=== PATIENT | male | born 1950 | race Caucasian/White ===

== ENCOUNTER → 2016-05-07 | Outpatient (CLI) | payer MEDICARE ==
[2016-05-07 07:18] LABS: CH 29.3; CHCM 33.7; HCT 37.6 % (39.0-53.0); HGB 12.7 gm/dL (13.0-17.5); Large Platelets Flag Slight; MCH 29.5 pg (25.0-35.0); MCHC 33.7 g/dL (31.0-37.0); MCV 87.4 fL (80.0-100.0); Mean Platelet Volume 11.2; RDW 13.5 % (11.5-15.5); WBC 8.4 k/uL (3.8-10.6)
[2016-05-07 07:51] LABS: ALT 22 U/L (21-72); AST 15 U/L (17-59); Alkaline Phosphatase 62 U/L (38-126); Anion Gap 12 mmol/L; Blood Urea Nitrogen 17 mg/dL (9-20); Carbon Dioxide 25 mmol/L (22-30); Chloride 106 mmol/L (98-107); Cholesterol 116 mg/dL (<200); Glucose 125 mg/dL (74-99); HDL Cholesterol 36 mg/dL (40-60); Non-African American GFR(MDRD) >60 (>60 ml/min/1.73 sqM); Sodium 143 mmol/L (137-145); Total Bilirubin 0.8 mg/dL (0.2-1.3); Total Protein 7.2 g/dL (6.3-8.2); Triglycerides 138 mg/dL (<150)
== END | disposition home or self-care (01) ==
LOC: LABWHC1 07:02
PROVIDERS: ATTEND Internal Medicine Interventional Cardiology
DX: E78.2 Mixed hyperlipidemia (principal); I25.10 Atherosclerotic heart disease of native coronary artery without angina pectoris
CPT/HCPCS: 36415; 80053; 80061; 85027

== ENCOUNTER → 2016-10-29 | Outpatient (CLI) | payer MEDICARE ==
[2016-10-29 15:40] LABS: ALT 33 U/L (21-72); AST 17 U/L (17-59); Alkaline Phosphatase 64 U/L (38-126); Anion Gap 9 mmol/L; Blood Urea Nitrogen 13 mg/dL (9-20); Calcium 8.6 mg/dL (8.4-10.2); Carbon Dioxide 26 mmol/L (22-30); Chloride 105 mmol/L (98-107); Glucose 103 mg/dL (74-99); Non-African American GFR(MDRD) >60 (>60 ml/min/1.73 sqM); Potassium 3.8 mmol/L (3.5-5.1); Sodium 140 mmol/L (137-145); Total Bilirubin 0.4 mg/dL (0.2-1.3); Total Protein 6.7 g/dL (6.3-8.2)
== END | disposition home or self-care (01) ==
LOC: LABWHC1 15:05
PROVIDERS: ATTEND Internal Medicine Interventional Cardiology
DX: I10 Essential (primary) hypertension (principal)
CPT/HCPCS: 36415; 80053

== ENCOUNTER 2018-05-21 05:49 | Day surgery (SDC) | payer MEDICARE ==
[2018-05-19 09:15] VITALS: BMI 32.0
[2018-05-21] MEDS ORDERED: SODIUM CHLORIDE 0.9% 1,000 ML IV SCH ×2 (05:51→07:45)
[2018-05-21 06:40] VITALS: TEMP 98
[2018-05-21 07:12] LABS: Anion Gap 10 mmol/L; Blood Urea Nitrogen 18 mg/dL (9-20); Calcium 8.9 mg/dL (8.4-10.2); Carbon Dioxide 23 mmol/L (22-30); Chloride 106 mmol/L (98-107); Glucose 131 mg/dL (74-99); Potassium 4.6 mmol/L (3.5-5.1); Sodium 139 mmol/L (137-145)
[2018-05-21] MEDS ORDERED: PROPOFOL 10 MG/ML 20 ML VIAL IV ONE (07:15)
[2018-05-21] MEDS ORDERED: SODIUM CHLORIDE 0.9% 500 ML 500 ML IV ONE (07:21)
[2018-05-21] MEDS ORDERED: NITROGLYCERIN SL TABS 0.4 MG TAB SUBLINGUAL PRN (07:41)
--- NOTE | 2018-05-21 08:45 | ECHOT ---
TRANSESOPHAGEAL ECHOCARDIOGRAM INDICATION: Evaluation of left atrial appendage. PROCEDURE: After explaining the procedure to the patient, its risks and the complications, his blood pressure, heart rate, O2 saturation was monitored. The throat was sprayed with Cetacaine. He received sedation per anesthesia department. The probe was introduced into the esophagus without difficulties. Images were obtained. Following that, the probe was removed. There was no immediate complication. FINDINGS: Left atrial size is dilated. Spontaneous contrast was noted. Left atrial appendage is normal. Left ventricular size and systolic function normal. The aortic valve, mitral valve and tricuspid valve is normal. No pericardial effusion was noted. Contrast bubble study revealed no evidence of shunting across the interatrial septum. Doppler pulse wave and color Doppler obtained and revealed mild mitral regurgitation. There was no shunting by color Doppler study. CONCLUSION: 1. Dilated left atrium with normal appearance left atrial appendage with spontaneous contrast. 2. Normal left ventricular size and systolic function. 3. Mild mitral regurgitation. 4. Normal appearance of the descending thoracic aorta. 5. No evidence of shunting by color Doppler study or contrast bubble study. MMODL / IJN: [id number] /
[2018-05-21] MEDS ORDERED: FLECAINIDE ACETATE 100 MG PO SCH (09:00)
[2018-05-21] MEDS ORDERED: DOXAZOSIN 4 MG TAB PO SCH (09:00)
[2018-05-21] MEDS ORDERED: LOSARTAN 50 MG TAB PO SCH (09:00)
[2018-05-21] MEDS ORDERED: SPIRONOLACTONE 25 MG TAB PO SCH (09:00)
[2018-05-21] MEDS ORDERED: CARVEDILOL 12.5 MG TAB PO SCH (09:00)
[2018-05-21 09:43] VITALS: RESP 20
[2018-05-21 10:15] VITALS: BP 137/72; PULSE 86
--- NOTE | 2018-05-21 10:21 | CE ---
CARDIAC ELECTROPHYSIOLOGY REPORT CARDIOVERSION PROCEDURE NOTE. INDICATION: Atrial fibrillation. PROCEDURE: After explaining the procedure to the patient, its risks and the complications, after obtaining transesophageal echocardiogram and sedated state, a synchronized biphasic cardioversion was performed using 200 joules with christianity of normal sinus rhythm. After the patient appeared to be in atrial tachycardia. There was no immediate complication. JEFFERSON / FRANCISCO JAVIERN: [id number] / [email or web address]
[2018-05-21] MEDS ORDERED: RIVAROXABAN 20 MG TAB PO SCH (18:30)
[2018-05-22] MEDS ORDERED: NON-FORMULARY DRUG (Omeprazole 20 MG) PO SCH (07:30)
== END 2018-05-21 10:00 | disposition home or self-care (01) ==
LOC: CATHCVL 05:49
PROVIDERS: ATTEND Internal Medicine Interventional Cardiology
DX: I48.1 Persistent atrial fibrillation (principal); I34.0 Nonrheumatic mitral (valve) insufficiency; I25.10 Atherosclerotic heart disease of native coronary artery without angina pectoris; E78.5 Hyperlipidemia, unspecified; E78.2 Mixed hyperlipidemia; K21.9 Gastro-esophageal reflux disease without esophagitis; I10 Essential (primary) hypertension; Z95.5 Presence of coronary angioplasty implant and graft; Z82.49 Family history of ischemic heart disease and other diseases of the circulatory system; Z79.899 Other long term (current) drug therapy; Z79.01 Long term (current) use of anticoagulants; Z88.0 Allergy status to penicillin; Z88.8 Allergy status to other drugs, medicaments and biological substances
CPT/HCPCS: 93312; 93320; 93325; 92960; 80048; J2704

== ENCOUNTER → 2018-06-18 | Outpatient (CLI) | payer MEDICARE ==
[2018-06-18 10:14] LABS: HCT 37.2 % (39.0-53.0); HGB 12.1 gm/dL (13.0-17.5); MCH 28.7 pg (25.0-35.0); MCHC 32.5 g/dL (31.0-37.0); MCV 88.1 fL (80.0-100.0); Mean Platelet Volume 10.8; Platelet Count 195 k/uL (150-450); RBC 4.22 m/uL (4.30-5.90); RDW 13.6 % (11.5-15.5); WBC 8.5 k/uL (3.8-10.6)
[2018-06-18 15:48] LABS: Potassium 4.5 mmol/L (3.5-5.5)
== END | disposition home or self-care (01) ==
LOC: LABWHC1 08:40
PROVIDERS: ATTEND Internal Medicine Cardiovascular Disease
DX: Z01.812 Encounter for preprocedural laboratory examination (principal)
CPT/HCPCS: 36415; 80051; 85027

== ENCOUNTER 2019-04-10 21:53 | Emergency (ER) | payer MEDICARE ==
[2019-04-10 21:59] VITALS: TEMP 98
--- NOTE | 2019-04-10 22:14 | ED ---
General Adult HPI - General Chief complaint: Recheck/Abnormal Lab/Rx Stated complaint: High BP Time Seen by Provider: 04/10/19 22:02 Source: patient, family Mode of arrival: ambulatory Limitations: no limitations - History of Present Illness Initial comments: This patient is a 69-year-old man who presents to be evaluated for concerns about his blood pressure. Patient states that he had arrived back at his home today after traveling here from [place]. On arrival he found that his home carbon monoxide sensors were going off. The patient states that they had the fire department come out and check and found that the level was normal. When the fire department had arrived however they also did check and found that his blood pressure was elevated, being above 200/100. The patient notes that when he was in [place] he was having some symptoms and the physician there reduced the dosages of his antihypertensives. At home prior to coming here he did take extra doses of 2 of his antihypertensives, and on arrival his blood pressure has improved. The patient did have some associated headache when it was elevated, but he states it is improving and he declines anything here stating he will take Tylenol. There is no chest pain, dyspnea, palpitations, diaphoresis, nausea or vomiting. No neurologic symptoms. No neck stiffness. -: hour(s) Location: head Severity scale (1-10): 3 Quality: dull Consistency: now resolved Improves with: none Worsens with: none Associated Symptoms: denies other symptoms - Related Data Home Medications Medication Instructions Recorded Confirmed Simvastatin [Zocor] 20 mg PO HS 05/24/14 05/19/18 Carvedilol [Coreg] 12.5 mg PO BID 05/19/18 05/19/18 Doxazosin [Cardura] 4 mg PO BID 05/19/18 05/19/18 Flecainide Acetate 100 mg PO BID 05/19/18 05/19/18 Losartan [Cozaar] 50 mg PO BID 05/19/18 05/19/18 Omeprazole [PriLOSEC] 20 mg PO AC-BRKFST 05/19/18 05/19/18 Rivaroxaban [Xarelto] 20 mg PO PC-SUPPER 05/19/18 05/21/18 Spironolactone 25 mg PO QAM 05/19/18 05/19/18 Previous Rx's Medication Instructions Recorded Nitroglycerin Sl Tabs [Nitrostat] 0.4 mg SUBLINGUAL Q5M PRN #25 tab 05/26/14 Allergies Allergy/AdvReac Type Severity Reaction Status Date / Time nifedipine [From Procardia] Allergy Dyspnea Verified 04/10/19 21:59 Penicillins Allergy Unknown Verified 04/10/19 21:59 Childhood Review of Systems ROS Statement: Those systems with pertinent positive or pertinent negative responses have been documented in the HPI. ROS Other: All systems not noted in ROS Statement are negative. Constitutional: Denies: fever, chills Respiratory: Denies: cough, dyspnea Cardiovascular: Denies: chest pain, palpitations, edema, syncope Gastrointestinal: Denies: abdominal pain, nausea, vomiting Genitourinary: Denies: dysuria, hematuria Musculoskeletal: Denies: back pain Skin: Denies: rash Neurological: Reports: headache. Denies: weakness, numbness, paresthesias, confusion, abnormal gait, vertigo Past Medical History Past Medical History: Atrial Fibrillation, Asthma, Coronary Artery Disease (CAD), Chest Pain / Angina, Heart Failure, GERD/Reflux, Hypertension, Myocardial Infarction ([place]), Pneumonia, Prostate Disorder, Sleep Apnea/CPAP/BIPAP Additional Past Medical History / Comment(s): sinus problems, damamaged lung/left side ribs from fall in 2009-has caused pleurisy, pneumonia yrs ago, spondylitis, anemia, Last Myocardial Infarction Date:: 2010 History of Any Multi-Drug Resistant Organisms: None Reported Past Surgical History: Adenoidectomy, Cholecystectomy, Heart Catheterization With Stent, Joint Replacement, Orthopedic Surgery, Tonsillectomy Additional Past Surgical History / Comment(s): edwige EYE CATARACT REMOVED. RT KNEE REPLACEMENT, left ankle fusion, two cardiac stents, cardioversion Past Anesthesia/Blood Transfusion Reactions: Previous Problems w/ Anesthesia Additional Past Anesthesia/Blood Transfusion Reaction / Comment(s): had trouble waking up Date of Last Stent Placement:: 2009 AND 2011 Past Psychological History: Anxiety Smoking Status: Never smoker Past Alcohol Use History: Rare Past Drug Use History: None Reported - Past Family History Brother(s) Family Medical History: Cancer Father Family Medical History: Cancer Additional Family Medical History / Comment(s): FROM BONE MARROW CANCER Mother Family Medical History: Cancer Additional Family Medical History / Comment(s): KIDNEY/LIVER General Exam Limitations: no limitations General appearance: alert, in no apparent distress Head exam: Present: atraumatic, normocephalic Eye exam: Present: normal appearance. Absent: scleral icterus, conjunctival injection ENT exam: Present: normal oropharynx Neck exam: Present: normal inspection Respiratory exam: Present: normal lung sounds bilaterally. Absent: respiratory distress, wheezes, rales, rhonchi, stridor Cardiovascular Exam: Present: regular rate, normal rhythm, normal heart sounds. Absent: systolic murmur, diastolic murmur, rubs, gallop GI/Abdominal exam: Present: soft Extremities exam: Present: normal inspection, normal capillary refill. Absent: pedal edema, calf tenderness Back exam: Present: normal inspection. Absent: CVA tenderness (R), CVA tenderness (L) Neurological exam: Present: alert, CN II-XII intact. Absent: motor sensory deficit Skin exam: Present: warm, dry, intact, normal color. Absent: rash Course Vital Signs 04/10/19 04/10/19 21:56 21:59 Temperature 98 F Pulse Rate 100 90 Respiratory 20 20 Rate Blood Pressure 162/90 135/81 O2 Sat by Pulse 98 97 Oximetry EKG Findings - EKG Results: EKG: interpreted by JOSE PHILLIPS, sinus rhythm (Rate 90 bpm), normal axis, normal QRS, normal ST/T, no acute changes Medical Decision Making - Lab Data Lab Results 04/10/19 Range/Units 22:14 Carbon Monoxide, Quant 1.9 (<10.0) % Disposition Clinical Impression: HTN (hypertension) Disposition: HOME SELF-CARE Condition: Good Instructions (If sedation given, give patient instructions): Hypertension (ED) Is patient prescribed a controlled substance at d/c from ED?: No Referrals: Sheryl Avelar III, MD [Primary Care Provider] - 1-2 days
[2019-04-10 23:23] VITALS: BP 125/75; PULSE 77; RESP 18
== END 2019-04-10 23:25 | disposition home or self-care (01) ==
LOC: EC 21:53
DX: I11.0 Hypertensive heart disease with heart failure (principal); I50.9 Heart failure, unspecified; I48.91 Unspecified atrial fibrillation; I25.119 Atherosclerotic heart disease of native coronary artery with unspecified angina pectoris; K21.9 Gastro-esophageal reflux disease without esophagitis; I25.2 Old myocardial infarction; N42.9 Disorder of prostate, unspecified; G47.30 Sleep apnea, unspecified; Z88.0 Allergy status to penicillin; Z88.8 Allergy status to other drugs, medicaments and biological substances; Z79.01 Long term (current) use of anticoagulants; Z79.899 Other long term (current) drug therapy; Z95.5 Presence of coronary angioplasty implant and graft; Z96.651 Presence of right artificial knee joint; Z98.1 Arthrodesis status; Z99.89 Dependence on other enabling machines and devices
CPT/HCPCS: 82375; 93005; 99283

== ENCOUNTER 2020-07-10 16:45 | Observation (INO) | payer MEDICARE ==
[2020-07-10] MEDS ORDERED: SODIUM CHLORIDE 0.9% 1,000 ML IV STA ×2 (16:59)
[2020-07-10] MEDS ORDERED: PANTOPRAZOLE 40 MG/10 ML VIAL IVP STA (16:59)
[2020-07-10] MEDS ORDERED: ONDANSETRON 4 MG/2 ML VIAL IVP STA (16:59)
--- NOTE | 2020-07-10 17:03 | ED ---
General Adult HPI - General Chief complaint: Abdominal Pain Stated complaint: Fever,Nausea,Low urine output Time Seen by Provider: 07/10/20 16:50 Source: patient, RN notes reviewed Mode of arrival: EMS Limitations: no limitations - History of Present Illness Initial comments: Patient is a pleasant 70-year-old male presenting to the emergency Department with abdominal discomfort, nausea and vomiting. Onset of symptoms was 2-3 days ago. Patient did have fever today. Patient still has some dry heaves. patient diarrhea. Abdominal discomfort is mostly left lower abdomen. Occasional cough. Patient does have decreased urinary output and does see a urologist for that for his prostate. Patient also has some mild dysuria. - Related Data Home Medications Medication Instructions Recorded Confirmed Simvastatin [Zocor] 20 mg PO HS 05/24/14 05/19/18 Doxazosin [Cardura] 4 mg PO BID 05/19/18 05/19/18 Flecainide Acetate 100 mg PO BID 05/19/18 05/19/18 Losartan [Cozaar] 50 mg PO BID 05/19/18 05/19/18 Omeprazole [PriLOSEC] 20 mg PO AC-BRKFST 05/19/18 05/19/18 Rivaroxaban [Xarelto] 20 mg PO PC-SUPPER 05/19/18 05/21/18 Spironolactone 25 mg PO QAM 05/19/18 05/19/18 carvediloL [Coreg] 12.5 mg PO BID 05/19/18 05/19/18 Previous Rx's Medication Instructions Recorded Nitroglycerin Sl Tabs [Nitrostat] 0.4 mg SUBLINGUAL Q5M PRN #25 tab 05/26/14 Allergies Allergy/AdvReac Type Severity Reaction Status Date / Time nifedipine [From Procardia] Allergy Dyspnea Verified 07/10/20 16:54 Penicillins Allergy Unknown Verified 07/10/20 16:54 Childhood Review of Systems ROS Statement: Those systems with pertinent positive or pertinent negative responses have been documented in the HPI. ROS Other: All systems not noted in ROS Statement are negative. Constitutional: Denies: fever Eyes: Denies: eye pain ENT: Denies: ear pain Respiratory: Reports: cough Cardiovascular: Denies: chest pain Endocrine: Reports: fatigue Gastrointestinal: Reports: abdominal pain, nausea, vomiting Genitourinary: Reports: as per HPI, urgency, dysuria Musculoskeletal: Denies: back pain Skin: Denies: rash Neurological: Denies: weakness Past Medical History Past Medical History: Atrial Fibrillation, Asthma, Coronary Artery Disease (CAD), Chest Pain / Angina, Heart Failure, GERD/Reflux, Hypertension, Myocardial Infarction ([place]), Pneumonia, Prostate Disorder, Sleep Apnea/CPAP/BIPAP Additional Past Medical History / Comment(s): sinus problems, damamaged lung/left side ribs from fall in 2009-has caused pleurisy, pneumonia yrs ago, spondylitis, anemia, Last Myocardial Infarction Date:: 2010 History of Any Multi-Drug Resistant Organisms: None Reported Past Surgical History: Adenoidectomy, Cholecystectomy, Heart Catheterization With Stent, Joint Replacement, Orthopedic Surgery, Tonsillectomy Additional Past Surgical History / Comment(s): edwige EYE CATARACT REMOVED. RT KNEE REPLACEMENT, left ankle fusion, two cardiac stents, cardioversion Past Anesthesia/Blood Transfusion Reactions: Previous Problems w/ Anesthesia Additional Past Anesthesia/Blood Transfusion Reaction / Comment(s): had trouble waking up Date of Last Stent Placement:: 2009 AND 2011 Past Psychological History: Anxiety Smoking Status: Never smoker Past Alcohol Use History: Rare Past Drug Use History: None Reported - Past Family History Brother(s) Family Medical History: Cancer Father Family Medical History: Cancer Additional Family Medical History / Comment(s): FROM BONE MARROW CANCER Mother Family Medical History: Cancer Additional Family Medical History / Comment(s): KIDNEY/LIVER General Exam Limitations: no limitations General appearance: alert, in no apparent distress Head exam: Present: atraumatic Eye exam: Present: normal appearance ENT exam: Present: mucous membranes dry Neck exam: Present: normal inspection Respiratory exam: Present: normal lung sounds bilaterally Cardiovascular Exam: Present: regular rate, normal rhythm Expanded Peripheral pulses: 2+: Dorsalis Pedis (R), Dorsalis Pedis (L) GI/Abdominal exam: Present: soft, tenderness (Moderate tenderness left lower abdomen), normal bowel sounds. Absent: distended, guarding, rebound, rigid, pulsatile mass Extremities exam: Present: normal inspection Neurological exam: Present: alert Psychiatric exam: Present: normal affect, normal mood Skin exam: Present: normal color Course Vital Signs 07/10/20 07/10/20 07/10/20 16:48 16:55 18:51 Temperature 102 F H 99.5 F Pulse Rate 116 H 76 Respiratory 18 16 Rate Blood Pressure 135/79 104/60 O2 Sat by Pulse 96 98 Oximetry EKG Findings - EKG Comments: EKG Findings:: Sinus rhythm with rate of 91. TN 156. QRS 90. QT 364. QTC 447. Normal axis. T-wave inversion 3 and borderline aVF. Normal QRS. Medical Decision Making - Medical Decision Making Patient reevaluated and feeling slightly better. Patient's blood pressure did drop slightly following computed tomography scan however has improved. Patient still feels nauseated. Patient does have some evidence of dehydration. Case discussed with Dr. Valdivia, covering for Dr. Avelar, who will admit. - Lab Data Result diagrams: 07/10/20 17:06 07/10/20 17:06 Lab Results 07/10/20 07/10/20 07/10/20 Range/Units 17:06 17:06 17:06 WBC 12.1 H (3.8-10.6) k/uL RBC 3.69 L (4.30-5.90) m/uL Hgb 11.2 L (13.0-17.5) gm/dL Hct 33.1 L (39.0-53.0) % MCV 89.5 (80.0-100.0) fL MCH 30.3 (25.0-35.0) pg MCHC 33.8 (31.0-37.0) g/dL RDW 14.7 (11.5-15.5) % Plt Count 124 L (150-450) k/uL MPV 12.4 Neutrophils % 92 % Lymphocytes % 2 % Monocytes % 4 % Eosinophils % 1 % Basophils % 0 % Neutrophils # 11.0 H (1.3-7.7) k/uL Lymphocytes # 0.2 L (1.0-4.8) k/uL Monocytes # 0.5 (0-1.0) k/uL Eosinophils # 0.2 (0-0.7) k/uL Basophils # 0.0 (0-0.2) k/uL PT 12.5 H (9.0-12.0) sec INR 1.2 H (<1.2) APTT 25.3 (22.0-30.0) sec Sodium 140 (137-145) mmol/L Potassium 4.0 (3.5-5.1) mmol/L Chloride 108 H (98-107) mmol/L Carbon Dioxide 24 (22-30) mmol/L Anion Gap 8 mmol/L BUN 28 H (9-20) mg/dL Creatinine 1.43 H (0.66-1.25) mg/dL Est GFR (CKD-EPI)AfAm 57 (>60 ml/min/1.73 sqM) Est GFR (CKD-EPI)NonAf 49 (>60 ml/min/1.73 sqM) Glucose 135 H (74-99) mg/dL Calcium 8.7 (8.4-10.2) mg/dL Total Bilirubin 1.1 (0.2-1.3) mg/dL AST 38 (17-59) U/L ALT 44 (4-49) U/L Alkaline Phosphatase 84 (38-126) U/L Total Protein 6.2 L (6.3-8.2) g/dL Albumin 3.5 (3.5-5.0) g/dL Amylase 49 (30-110) U/L Lipase 68 (23-300) U/L Urine Color Urine Appearance (Clear) Urine pH (5.0-8.0) Ur Specific Caroleen (1.001-1.035) Urine Protein (Negative) Urine Glucose (UA) (Negative) Urine Ketones (Negative) Urine Blood (Negative) Urine Nitrite (Negative) Urine Bilirubin (Negative) Urine Urobilinogen (<2.0) mg/dL Ur Leukocyte Esterase (Negative) Coronavirus (PCR) (Not Detectd) 07/10/20 07/10/20 Range/Units 17:33 18:20 WBC (3.8-10.6) k/uL RBC (4.30-5.90) m/uL Hgb (13.0-17.5) gm/dL Hct (39.0-53.0) % MCV (80.0-100.0) fL MCH (25.0-35.0) pg MCHC (31.0-37.0) g/dL RDW (11.5-15.5) % Plt Count (150-450) k/uL MPV Neutrophils % % Lymphocytes % % Monocytes % % Eosinophils % % Basophils % % Neutrophils # (1.3-7.7) k/uL Lymphocytes # (1.0-4.8) k/uL Monocytes # (0-1.0) k/uL Eosinophils # (0-0.7) k/uL Basophils # (0-0.2) k/uL PT (9.0-12.0) sec INR (<1.2) APTT (22.0-30.0) sec Sodium (137-145) mmol/L Potassium (3.5-5.1) mmol/L Chloride (98-107) mmol/L Carbon Dioxide (22-30) mmol/L Anion Gap mmol/L BUN (9-20) mg/dL Creatinine (0.66-1.25) mg/dL Est GFR (CKD-EPI)AfAm (>60 ml/min/1.73 sqM) Est GFR (CKD-EPI)NonAf (>60 ml/min/1.73 sqM) Glucose (74-99) mg/dL Calcium (8.4-10.2) mg/dL Total Bilirubin (0.2-1.3) mg/dL AST (17-59) U/L ALT (4-49) U/L Alkaline Phosphatase (38-126) U/L Total Protein (6.3-8.2) g/dL Albumin (3.5-5.0) g/dL Amylase (30-110) U/L Lipase (23-300) U/L Urine Color Yellow Urine Appearance Clear (Clear) Urine pH 5.0 (5.0-8.0) Ur Specific Caroleen 1.011 (1.001-1.035) Urine Protein Negative (Negative) Urine Glucose (UA) Negative (Negative) Urine Ketones Negative (Negative) Urine Blood Negative (Negative) Urine Nitrite Negative (Negative) Urine Bilirubin Negative (Negative) Urine Urobilinogen <2.0 (<2.0) mg/dL Ur Leukocyte Esterase Negative (Negative) Coronavirus (PCR) Not Detected (Not Detectd) - Radiology Data Radiology results: report reviewed (Computed tomography scan of the abdomen pelvis reveals no acute process.), image reviewed (Chest x-ray shows pleural reaction left lung base similar to old. No heart failure.) Disposition Clinical Impression: Vomiting, Dehydration Disposition: ADMITTED IP TO THIS HOSP Is patient prescribed a controlled substance at d/c from ED?: No Referrals: Sheryl Avelar III, MD [Primary Care Provider] - 1-2 days Decision Time: 19:49
[2020-07-10 17:17] LABS: Basophils % (A) 0 %; Eosinophils # (A) 0.2 k/uL (0-0.7); Eosinophils % (A) 1 %; HCT 33.1 % (39.0-53.0); HGB 11.2 gm/dL (13.0-17.5); Lymphocytes # (A) 0.2 k/uL (1.0-4.8); Lymphocytes % (A) 2 %; MCH 30.3 pg (25.0-35.0); MCHC 33.8 g/dL (31.0-37.0); MCV 89.5 fL (80.0-100.0); Mean Platelet Volume 12.4; Monocytes # (A) 0.5 k/uL (0-1.0); Monocytes % (A) 4 %; Neutrophils % (A) 92 %; Platelet Count 124 k/uL (150-450); RBC 3.69 m/uL (4.30-5.90); RDW 14.7 % (11.5-15.5); WBC 12.1 k/uL (3.8-10.6)
[2020-07-10] MEDS ORDERED: ACETAMINOPHEN IV (For NPO) 1,000 MG in EMPTY BAG 1 BAG IVPB ONE (17:30)
[2020-07-10 17:33] LABS: Albumin 3.5 g/dL (3.5-5.0); Calcium 8.7 mg/dL (8.4-10.2); Total Bilirubin 1.1 mg/dL (0.2-1.3); Total Protein 6.2 g/dL (6.3-8.2)
[2020-07-10 17:34] LABS: INR 1.2 (<1.2); Partial Thromboplastin Time 25.3 sec (22.0-30.0); Prothrombin Time 12.5 sec (9.0-12.0)
--- NOTE | 2020-07-10 18:25 | CT ---
EXAMINATION TYPE: CT abdomen pelvis w con DATE OF EXAM: 07/10/2020 COMPARISON: 01/10/2011 HISTORY: Abdominal pain and low urine output. CT DLP: 1783.8 mGycm Automated exposure control for dose reduction was used. CONTRAST: Performed with IV Contrast, patient injected with 80ml mL of Isovue 300. Images obtained from the diaphragm to the floor the pelvis with IV contrast. There is some mild infiltrate and atelectasis left lung base. There is some coronary artery calcifica tion. Liver spleen stomach pancreas appear intact. Bile ducts are not dilated. There are clips from c holecystectomy. There is 2 cm low-density left adrenal mass consistent with benign disease. This has fat density. Kidneys show satisfactory contrast opacification. There is no hydronephrosis. There are multiple ezio l cortical cysts that measure up to 5 cm. There is no retroperitoneal adenopathy. Ureters are not dil ated. Bladder distends smoothly. There is no inguinal hernia. There is no free fluid in the pelvis. A ppendix appears normal. There is no mesenteric edema. There is no ascites or free air. There is no si gn of a bowel obstruction. Lumbar spine is intact. There is no compression fracture. The bony pelvis is intact. IMPRESSION: Negative CT scan abdomen and pelvis. Normal appendix. Minimal infiltrate and pleural reaction left la teral lung base. This appears slightly increased compared to old exam. Normal appendix. Renal cortica l cysts are increased compared to old exam.
[2020-07-10 18:33] LABS: Appearance,Urine Clear (Clear); Bilirubin,Urine Negative (Negative); Blood,Urine Negative (Negative); Color,Urine Yellow; Glucose,Urine (UA) Negative (Negative); Ketones,Urine Negative (Negative); Leukocyte Esterase,Urine Negative (Negative); Nitrite,Urine Negative (Negative); Protein,Urine Negative (Negative); Specific Gravity,Urine 1.011 (1.001-1.035); Urobilinogen,Urine <2.0 mg/dL (<2.0)
--- NOTE | 2020-07-10 19:41 | XR ---
EXAMINATION TYPE: XR chest 2V DATE OF EXAM: 07/10/2020 COMPARISON: 05/11/2016 HISTORY: Fever TECHNIQUE: 2 views FINDINGS: There is some atelectasis left lung base. Heart size is normal. There is no heart failure. There are chest leads. Bony thorax is intact. IMPRESSION: Mild pleural reaction and atelectasis at the left lung base similar to old exam. No heart failure.
[2020-07-10] MEDS ORDERED: ACETAMINOPHEN TAB 325 MG TAB PO PRN (19:49)
[2020-07-10] MEDS ORDERED: NALOXONE 0.4 MG/ML 1 ML VIAL IV PRN (19:49)
[2020-07-10] MEDS ORDERED: ONDANSETRON 4 MG/2 ML VIAL IVP PRN (19:49)
[2020-07-10] MEDS: SODIUM CHLORIDE 0.9% 1,000 ML IV SCH (22:10)
[2020-07-10] MEDS ORDERED: NITROGLYCERIN SL TABS 0.4 MG TAB SUBLINGUAL PRN (23:08)
[2020-07-11 03:07] VITALS: RESP 16
[2020-07-11] MEDS ORDERED: MELATONIN 5 MG TABLET PO PRN (03:26)
[2020-07-11] MEDS: SODIUM CHLORIDE 0.9% 1,000 ML IV SCH (05:07)
[2020-07-11 07:21] VITALS: BP 111/67; PULSE 53; TEMP 98
[2020-07-11] MEDS ORDERED: carvediloL 3.125 MG TAB PO SCH (07:30)
[2020-07-11] MEDS ORDERED: PANTOPRAZOLE 40 MG/10 ML VIAL IV SCH (09:00)
[2020-07-11] MEDS ORDERED: LOSARTAN 50 MG TAB PO SCH (09:00)
[2020-07-11] MEDS ORDERED: RIVAROXABAN 20 MG TAB PO SCH ×2 (09:00→17:00)
[2020-07-11] MEDS ORDERED: PANTOPRAZOLE 40 MG TABLET PO SCH (09:00)
[2020-07-11] MEDS ORDERED: hydroCHLOROthiazide 25 MG TAB PO SCH (09:00)
[2020-07-11] MEDS ORDERED: DOXAZOSIN 4 MG TAB PO SCH (09:00)
[2020-07-11] MEDS ORDERED: FOLIC ACID 1 MG TAB PO SCH (09:00)
[2020-07-11 10:20] LABS: Basophils # (A) 0.01 X 10*3/uL (0.00-0.10); Basophils % (A) 0.1 %; Eosinophils # (A) 0.55 X 10*3/uL (0.04-0.35); Eosinophils % (A) 7.4 %; HCT 30.2 % (39.6-50.0); HGB 9.8 g/dL (13.0-17.0); Lymphocytes # (A) 0.91 X 10*3/uL (0.90-5.00); Lymphocytes % (A) 12.3 %; MCH 30.2 pg (27.0-32.0); MCHC 32.5 g/dL (32.0-37.0); MCV 92.9 fL (80.0-97.0); Mean Platelet Volume 14.5 fL (9.5-12.2); Monocytes # (A) 0.64 X 10*3/uL (0.20-1.00); Monocytes % (A) 8.6 %; Neutrophils # (A) 5.27 X 10*3/uL (1.80-7.70); Neutrophils % (A) 71.1 %; Platelet Count 126 X 10*3/uL (140-440); RBC 3.25 X 10*6/uL (4.40-5.60); RDW 14.1 % (11.5-14.5); WBC 7.42 X 10*3/uL (4.50-10.00)
[2020-07-11 10:22] LABS: African American GFR (CKD) 63.2 (60.0-200.0); Anion Gap 6.8 mmol/L (4.00-12.00); BUN/Creat Ratio 18.46 Ratio (12.00-20.00); Calcium 7.7 mg/dL (8.7-10.3); Carbon Dioxide 25.2 mmol/L (21.6-31.8); Non-African American GFR(CKD) 54.5 (60.0-200.0); Potassium 3.7 mmol/L (3.5-5.5)
--- NOTE | 2020-07-11 19:06 | HP ---
HISTORY AND PHYSICAL DATE OF SERVICE: 07/11/2020. COMBINED HISTORY AND PHYSICAL AND DISCHARGE SUMMARY: CHIEF COMPLAINT: Nausea, fever, chills, and some vomiting. HISTORY OF PRESENT ILLNESS: This 70-year-old gentleman with a past medical history of atrial fibrillation, asthma, CAD, CHF, GERD, hypertension, history of myocardial infarction, history of pneumonia, being followed by Dr. Avelar in the outpatient setting was admitted to [facility] yesterday with complaints of abdominal discomfort, some nausea, vomiting, and shaking, chills. The patient had similar symptoms over 2-3 days ago from which the patient recovered completely according to him. When the patient came yesterday, the patient had features of dehydration. The creatinine is elevated 1.43, indicating acute renal failure. Patient was given IV fluids. White count is 12.1, improved to 7.42, but the COVID-19 was negative and the patient has taken the complete course of vaccinations as well. Today the patient is feeling much better and the patient is extremely keen on going home at this time. There is no history of any chest pain, palpitations, hematochezia, melena, headache, loss of consciousness, seizures at this time. PAST MEDICAL HISTORY: Atrial fibrillation asthma, CAD, CHF, GERD, hypertension. MEDICATIONS: Medications prior to admission include home medications are nitro, Lipitor, Xarelto, Protonix, hydrochlorothiazide, Coreg, Cozaar, folic acid, Cardura, doses reviewed. ALLERGIES: PENICILLIN. FAMILY HISTORY: History of bone marrow cancer. SOCIAL HISTORY: No history of smoking. No history of alcohol intake. REVIEW OF SYSTEMS: ENT: No diminished vision. No diminished hearing. CARDIOVASCULAR SYSTEM: No angina or palpitations. RESPIRATORY: As mentioned earlier. GI: As mentioned earlier. no dysuria. NERVOUS SYSTEM: No numbness, weakness. ALLERGY/IMMUNOLOGY: As mentioned earlier. HEMATOLOGY/ONCOLOGY: No history of anemia. ENDOCRINE: No history of diabetes or hypothyroid. CONSTITUTIONAL: As mentioned earlier. DERMATOLOGY: Negative. RHEUMATOLOGY: Negative. PSYCHIATRIC: As mentioned earlier. PHYSICAL EXAMINATION: Alert and oriented times three. Pulse 53, blood pressure 111/67, respirations 16, temperature 98 degrees, pulse ox 98% on room air. HEENT: Conjunctivae normal. NECK: No JVD. CARDIOVASCULAR: S1, S2 muffled. RESPIRATION: Breath sounds diminished in the bases. No rhonchi. No crackles. ABDOMEN: Soft, nontender. No mass palpable. LEGS: No edema. No swelling. NERVOUS SYSTEM: Higher functions as mentioned earlier. Moves all four limbs. No focal motor or sensory deficits. LYMPHATICS: No lymph nodes palpable in the neck, axillae or groin. SKIN: No ulcer, no rash and no bleeding. JOINTS: No active deforming arthropathy. LAB STUDIES: WBC 7.3, hemoglobin 9.8, and platelets are 126. Other labs are noted. ASSESSMENT: 1. Nausea, vomiting, abdominal discomfort, possible viral syndrome. 2. Possible acute gastritis. 3. Increased WBC, possibly reactive, improved. 4. Anemia, normocytic. 5. Thrombocytopenia, stable. 6. Increased creatinine with acute renal failure with acute tubular necrosis with prerenal renal failure, improved. 7. History atrial fibrillation. 8. History of asthma. 9. History of coronary artery disease. 10.History of congestive heart failure. 11.Gastroesophageal reflux disease. 12.Hypertension. 13.History of myocardial infarction. 14.History of pneumonia. 15.Sleep apnea. 16.History of coronary artery disease, stent. 17.History of anxiety. 18.FULL CODE. RECOMMENDATIONS AND DISCUSSION: This 70-year-old gentleman who presented with multiple complex medical issues, we will monitor the patient closely, continue current medications. The patient improved significantly after IV fluids and the basic labs have almost normalized and hemoglobin 9.8. The platelets are 126, which could be the result of the viral syndrome. Needs outpatient followup. At this time, the patient is extremely keen on going home. I would recommend the patient to be discharged on the same medications and follow up with Dr. Avelar for continued followup and as well as followup labs and also to address the above mentioned multiple complex medical issues. Once again, the patient is stable at this time but overall prognosis remains guarded because of above-mentioned multiple medical issues. A copy of dictation being forwarded to Dr. Avelar, who is the primary physician. MMODL / IJN: [id number] /
[2020-07-11] MEDS ORDERED: ATORVASTATIN 40 MG TAB PO SCH (21:00)
== END 2020-07-11 11:45 | disposition home or self-care (01) ==
LOC: EC 16:45 → 6NMEDSUR 19:49
PROVIDERS: ADMIT Internal Medicine; ATTEND Internal Medicine
DX: R10.9 Unspecified abdominal pain (principal); R11.2 Nausea with vomiting, unspecified; D72.829 Elevated white blood cell count, unspecified; D64.9 Anemia, unspecified; D69.6 Thrombocytopenia, unspecified; N17.0 Acute kidney failure with tubular necrosis; I48.91 Unspecified atrial fibrillation; J45.909 Unspecified asthma, uncomplicated; I25.10 Atherosclerotic heart disease of native coronary artery without angina pectoris; I11.0 Hypertensive heart disease with heart failure; I50.9 Heart failure, unspecified; K21.9 Gastro-esophageal reflux disease without esophagitis; I25.2 Old myocardial infarction; Z87.01 Personal history of pneumonia (recurrent); G47.30 Sleep apnea, unspecified; Z95.5 Presence of coronary angioplasty implant and graft; F41.9 Anxiety disorder, unspecified; R50.9 Fever, unspecified; R19.7 Diarrhea, unspecified; R30.0 Dysuria; E86.0 Dehydration; N42.9 Disorder of prostate, unspecified; Z20.822 Contact with and (suspected) exposure to COVID-19; Z79.899 Other long term (current) drug therapy; Z88.0 Allergy status to penicillin; Z90.49 Acquired absence of other specified parts of digestive tract; Z79.01 Long term (current) use of anticoagulants; Z88.8 Allergy status to other drugs, medicaments and biological substances; Z96.651 Presence of right artificial knee joint; Z98.1 Arthrodesis status; Z91.81 History of falling; Z84.1 Family history of disorders of kidney and ureter; Z83.79 Family history of other diseases of the digestive system; Z80.8 Family history of malignant neoplasm of other organs or systems
CPT/HCPCS: 96365; 96375; 99285; 36415; 93005; 80053; 80048; 82150; 83690 ×2; 85025 ×2; 85610; 85730; 81003; 87635; 71046; 74177; G0378 ×2; J2405; J0131; C9113; Q9967

== ENCOUNTER → 2020-08-15 | Outpatient (CLI) | payer MEDICARE | END | disposition home or self-care (01) | LOC: LABWHC1 11:35 | PROVIDERS: ATTEND Urology | DX: R97.20 Elevated prostate specific antigen [PSA] (principal) | CPT/HCPCS: 36415; 84153 ==

== ENCOUNTER 2023-10-11 10:25 | Observation (INO) | payer MEDICARE ==
--- NOTE | 2023-10-11 10:42 | ED ---
Arrhythmia/Palpitations HPI - General Chief Complaint: Arrhythmia/Palpitations Stated Complaint: Heart palpatations Time Seen by Provider: 10/11/23 10:40 Source: patient, RN notes reviewed, old records reviewed Mode of arrival: wheelchair Limitations: no limitations - History of Present Illness Initial Comments: This is a 73-year-old male presenting today for evaluation of chest pain palpitations elevated blood pressures dizziness some blurry vision at times, patient is having numbness and tingling as well. Patient has history of atrial fibrillation history of stents and was supposed to have cardiology evaluation in office and hence presents to the ER due to symptoms MD Complaint: palpitations, atrial fibrillation -: unknown Associated Symptoms: chest pain, anxiety, feeling of impending doom Treatments Prior to Arrival: other (0) - Related Data Home Medications Medication Instructions Recorded Confirmed Doxazosin [Cardura] 4 mg PO BID 05/19/18 10/11/23 Losartan [Cozaar] 50 mg PO BID 05/19/18 10/11/23 Rivaroxaban [Xarelto] 20 mg PO HS 05/19/18 10/11/23 Atorvastatin [Lipitor] 40 mg PO HS 07/10/20 10/11/23 Pantoprazole Sodium [Protonix] 40 mg PO DAILY PRN 07/10/20 10/11/23 carvediloL [Coreg] 3.125 mg PO BID 07/10/20 10/11/23 Cyanocobalamin [Vitamin B-12 1,000 mcg SQ QMONTHLY 10/11/23 10/11/23 Injection] Previous Rx's Medication Instructions Recorded Nitroglycerin Sl Tabs [Nitrostat] 0.4 mg SUBLINGUAL Q5M PRN #25 tab 05/26/14 cloNIDine HCL [Catapres] 0.1 mg PO BID PRN 30 Days #60 tab 10/12/23 Allergies Allergy/AdvReac Type Severity Reaction Status Date / Time nifedipine [From Procardia] Allergy Dyspnea Verified 10/11/23 11:46 Penicillins Allergy Unknown Verified 10/11/23 11:46 Childhood Review of Systems ROS Statement: Those systems with pertinent positive or pertinent negative responses have been documented in the HPI. ROS Other: All systems not noted in ROS Statement are negative. Past Medical History Past Medical History: Atrial Fibrillation, Asthma, Coronary Artery Disease (C AD), Chest Pain / Angina, Heart Failure, GERD/Reflux, Hypertension, Myocardial Infarction (PR), Pneumonia, Prostate Disorder, Sleep Apnea/CPAP/BIPAP Additional Past Medical History / Comment(s): sinus problems, damamaged lung/left side ribs from fall in 2009-has caused pleurisy, pneumonia yrs ago, spondylitis, anemia, Last Myocardial Infarction Date:: 2010 History of Any Multi-Drug Resistant Organisms: None Reported Past Surgical History: Adenoidectomy, Cholecystectomy, Heart Catheterization Wit h Stent, Joint Replacement, Orthopedic Surgery, Tonsillectomy Additional Past Surgical History / Comment(s): edwige EYE CATARACT REMOVED. RT KNEE REPLACEMENT, left ankle fusion, two cardiac stents, cardioversion Past Anesthesia/Blood Transfusion Reactions: Previous Problems w/ Anesthesia Additional Past Anesthesia/Blood Transfusion Reaction / Comment(s): had trouble waking up Date of Last Stent Placement:: 2009 AND 2011 Past Psychological History: Anxiety Smoking Status: Never smoker Past Alcohol Use History: Rare Past Drug Use History: None Reported - Past Family History Brother(s) Family Medical History: Cancer Father Family Medical History: Cancer Additional Family Medical History / Comment(s): FROM BONE MARROW CANCER Mother Family Medical History: Cancer Additional Family Medical History / Comment(s): KIDNEY/LIVER General Exam Limitations: no limitations General appearance: alert, in no apparent distress Head exam: Present: atraumatic, normocephalic, normal inspection Eye exam: Present: normal appearance, PERRL, EOMI. Absent: scleral icterus, conjunctival injection, periorbital swelling ENT exam: Present: normal exam, mucous membranes moist Neck exam: Present: normal inspection. Absent: tenderness, meningismus, lymphadenopathy Respiratory exam: Present: normal lung sounds bilaterally. Absent: respiratory distress, wheezes, rales, rhonchi, stridor Cardiovascular Exam: Present: regular rate, normal rhythm, normal heart sounds. Absent: systolic murmur, diastolic murmur, rubs, gallop, clicks GI/Abdominal exam: Present: soft, normal bowel sounds. Absent: distended, tenderness, guarding, rebound, rigid Extremities exam: Present: normal inspection, full ROM, normal capillary refill. Absent: tenderness, pedal edema, joint swelling, calf tenderness Back exam: Present: normal inspection Neurological exam: Present: alert, oriented X3, CN II-XII intact Psychiatric exam: Present: normal affect, normal mood Skin exam: Present: warm, dry, intact, normal color. Absent: rash Course Vital Signs 10/11/23 10/11/23 10/11/23 10:29 10:45 10:51 Temperature 98.0 F Pulse Rate 91 Pulse Rate [ 85 Food Bagging Machine Operator ] Respiratory 18 Rate Blood Pressure 191/121 O2 Sat by Pulse 100 96 Oximetry 10/11/23 10/11/23 10/11/23 10:55 11:02 11:32 Temperature Pulse Rate 82 76 74 Pulse Rate [ Food Bagging Machine Operator ] Respiratory 18 18 18 Rate Blood Pressure 178/113 157/102 163/98 O2 Sat by Pulse 98 98 97 Oximetry 10/11/23 10/11/23 10/11/23 12:00 12:30 13:00 Temperature Pulse Rate 80 73 80 Pulse Rate [ Food Bagging Machine Operator ] Respiratory 17 18 16 Rate Blood Pressure 169/109 165/97 163/104 O2 Sat by Pulse 97 97 97 Oximetry 10/11/23 10/11/23 10/11/23 13:08 13:30 14:30 Temperature 97.6 F Pulse Rate 72 84 70 Pulse Rate [ Food Bagging Machine Operator ] Respiratory 18 16 16 Rate Blood Pressure 163/104 167/118 163/98 O2 Sat by Pulse 96 97 97 Oximetry 10/11/23 10/11/23 10/11/23 15:00 15:39 16:47 Temperature Pulse Rate 78 93 84 Pulse Rate [ Food Bagging Machine Operator ] Respiratory 18 18 18 Rate Blood Pressure 158/86 166/110 162/93 O2 Sat by Pulse 96 98 95 Oximetry 10/11/23 10/11/23 10/11/23 17:15 18:19 22:21 Temperature 98.7 F Pulse Rate 67 70 Pulse Rate [ Food Bagging Machine Operator ] Respiratory 18 17 Rate Blood Pressure 158/89 151/99 158/94 O2 Sat by Pulse 96 96 Oximetry - Reevaluation(s) Reevaluation #1: 10/11/23 12:50 Records reviewed Reevaluation #2: 10/11/23 12:50 Patient symptoms are unchanged Reevaluation #3: 10/11/23 12:50 Patient informed of results and questions answered Reevaluation #4: Was pt. sent in by a medical professional or institution (, PA, QI SPECIALIST, urgent care, hospital, or [place] [facility] facility...) When possible be specific @ -no Did you speak to anyone other than the patient for history (EMS, parent, family, police, friend...)? What history was obtained from this source @ -no Did you review nursing and triage notes (agree or disagree)? Why? @ -agree Are old charts reviewed (outside hosp., previous admission, EMS record, old EKG, old radiological studies, urgent care reports/EKG's, [place] [facility] facility records)? Report findings @ -yes Differential Diagnosis (chest pain, altered mental status, abdominal pain women, abdominal pain men, vaginal bleeding, weakness, fever, dyspnea, syncope, headache, dizziness, GI bleed, back pain, seizure, CVA, palpatations, mental health, musculoskeletal)? @ -prior EKG interpreted by me (3pts min.). @ -yes X-rays interpreted by me (1pt min.). @ -no CT interpreted by me (1pt min.). @ -no U/S interpreted by me (1pt. min.). @ -no What testing was considered but not performed or refused? (CT, X-rays, U/S, labs)? Why? @ -none What meds were considered but not given or refused? Why? @ -none Did you discuss the management of the patient with other professionals (professionals i.e. , PA, QI SPECIALIST, lab, RT, psych nurse, foster care social worker, molecular geneticist, teacher, classifications officer cc/cm, machine adjuster leader case trim)? Give summary @ -no Was smoking cessation discussed for >3mins.? @ -no Was critical care preformed (if so, how long)? @ -yes31 Were there social determinants of health that impacted care today? How? (Homelessness, low income, unemployed, alcoholism, drug addiction, transportation, low edu. Level, literacy, decrease access to med. care, senior living, rehab)? @ -none Was there de-escalation of care discussed even if they declined (Discuss DNR or withdrawal of care, Hospice)? DNR status @ -no What co-morbidities impacted this encounter? (DM, HTN, Smoking, COPD, CAD, Cancer, CVA, ARF, Chemo, Hep., AIDS, mental health diagnosis, sleep apnea, morbid obesity)? @ -none Was patient admitted / discharged? Hospital course, mention meds given and route, prescriptions, significant lab abnormalities, going to OR and other pertinent info. @ - 73 male to the ER for evaluation patient presents today for evaluation in regards to hypertension elevated blood pressure uncontrolled blood pressure at home with palpitations, history of atrial fibrillation patient is on Eliquis will admit for cardiology evaluation feels like prior episodes were patient has noted to have a stent placed which she has a prior history of that happening twice Admitted Undiagnosed new problem with uncertain prognosis? @ -no Drug Therapy requiring intensive monitoring for toxicity (Heparin, Nitro, Insulin, Cardizem)? @ -no Were any procedures done? @ -no Diagnosis/symptom? @ -Chest pain ACS Acute, or Chronic, or Acute on Chronic? @ -Acute Uncomplicated (without systemic symptoms) or Complicated (systemic symptoms)? @ -Complicated Side effects of treatment? @ -no Exacerbation, Progression, or Severe Exacerbation? @ -exacerbation Poses a threat to life or bodily function? How? (Chest pain, USA, PR, pneumonia, PE, COPD, DKA, ARF, appy, cholecystitis, CVA, Diverticulitis, Homicidal, Suicidal, threat to staff... and all critical care pts) @ -yes with chest pain Reevaluation #5: Differential Chest Pain: Stable Angina, Unstable Angina, STEMI, NSTEMI Aortic Dissection, Pneumothorax, Musculoskeletal, Esophageal Spasm GERD, Cholecystitis, Pancreatitis, Zoster, this is not meant to be an all-inclusive list. - Consultations Consultation #1: Spoke with sound who agrees to admit this patient EKG Findings - EKG Comments: EKG Findings:: EKG is A-fib 89 QRS 96 QTc 417 - EKG Results: EKG: interpreted by ERMD Medical Decision Making - Medical Decision Making 73 male to the ER for evaluation patient presents today for evaluation in regards to hypertension elevated blood pressure uncontrolled blood pressure at home with palpitations, history of atrial fibrillation patient is on Eliquis will admit for cardiology evaluation feels like prior episodes were patient has noted to have a stent placed which she has a prior history of that happening twice - Lab Data Result diagrams: 10/11/23 10:53 10/11/23 10:53 Lab Results 10/11/23 10/11/23 10/11/23 Range/Units 10:53 10:53 10:53 WBC 10.6 (3.8-10.6) k/uL RBC 4.33 (4.30-5.90) m/uL Hgb 13.2 (13.0-17.5) gm/dL Hct 38.4 L (39.0-53.0) % MCV 88.8 (80.0-100.0) fL MCH 30.5 (25.0-35.0) pg MCHC 34.3 (31.0-37.0) g/dL RDW 13.2 (11.5-15.5) % Plt Count 150 (150-450) k/uL MPV 11.6 Neutrophils % 76 % Lymphocytes % 14 % Monocytes % 6 % Eosinophils % 3 % Basophils % 0 % Neutrophils # 8.0 H (1.3-7.7) k/uL Lymphocytes # 1.4 (1.0-4.8) k/uL Monocytes # 0.6 (0-1.0) k/uL Eosinophils # 0.3 (0-0.7) k/uL Basophils # 0.0 (0-0.2) k/uL PT 13.5 H (10.0-12.5) sec INR 1.3 H (<1.2) APTT 30.4 H (22.0-30.0) sec Sodium 138 (137-145) mmol/L Potassium 4.0 (3.5-5.1) mmol/L Chloride 107 (98-107) mmol/L Carbon Dioxide 26 (22-30) mmol/L Anion Gap 5 mmol/L BUN 12 (9-20) mg/dL Creatinine 0.82 (0.66-1.25) mg/dL Est GFR (CKD-EPI)AfAm >90 (>60 ml/min/1.73 sqM) Est GFR (CKD-EPI)NonAf 87 (>60 ml/min/1.73 sqM) Glucose 124 H (74-99) mg/dL Plasma Lactic Acid Vladislav (0.7-2.0) mmol/L Calcium 8.8 (8.4-10.2) mg/dL Phosphorus 3.6 (2.5-4.5) mg/dL Magnesium 1.6 (1.6-2.3) mg/dL Total Bilirubin 1.3 (0.2-1.3) mg/dL AST 20 (17-59) U/L ALT 16 (4-49) U/L Alkaline Phosphatase 78 (38-126) U/L Troponin I (0.000-0.034) ng/mL NT-Pro-B Natriuret Pep 1790 pg/mL Total Protein 6.3 (6.3-8.2) g/dL Albumin 3.7 (3.5-5.0) g/dL 10/11/23 10/11/23 Range/Units 10:53 10:53 WBC (3.8-10.6) k/uL RBC (4.30-5.90) m/uL Hgb (13.0-17.5) gm/dL Hct (39.0-53.0) % MCV (80.0-100.0) fL MCH (25.0-35.0) pg MCHC (31.0-37.0) g/dL RDW (11.5-15.5) % Plt Count (150-450) k/uL MPV Neutrophils % % Lymphocytes % % Monocytes % % Eosinophils % % Basophils % % Neutrophils # (1.3-7.7) k/uL Lymphocytes # (1.0-4.8) k/uL Monocytes # (0-1.0) k/uL Eosinophils # (0-0.7) k/uL Basophils # (0-0.2) k/uL PT (10.0-12.5) sec INR (<1.2) APTT (22.0-30.0) sec Sodium (137-145) mmol/L Potassium (3.5-5.1) mmol/L Chloride (98-107) mmol/L Carbon Dioxide (22-30) mmol/L Anion Gap mmol/L BUN (9-20) mg/dL Creatinine (0.66-1.25) mg/dL Est GFR (CKD-EPI)AfAm (>60 ml/min/1.73 sqM) Est GFR (CKD-EPI)NonAf (>60 ml/min/1.73 sqM) Glucose (74-99) mg/dL Plasma Lactic Acid Vladislav 1.1 (0.7-2.0) mmol/L Calcium (8.4-10.2) mg/dL Phosphorus (2.5-4.5) mg/dL Magnesium (1.6-2.3) mg/dL Total Bilirubin (0.2-1.3) mg/dL AST (17-59) U/L ALT (4-49) U/L Alkaline Phosphatase (38-126) U/L Troponin I <0.012 (0.000-0.034) ng/mL NT-Pro-B Natriuret Pep pg/mL Total Protein (6.3-8.2) g/dL Albumin (3.5-5.0) g/dL - EKG Data -: EKG Interpreted by Me Critical Care Time Critical Care Time: Yes Total Critical Care Time: 31 Disposition Clinical Impression: Palpitations, Tachycardia, Atrial fibrillation, Hypertension, Dizziness Disposition: ADMITTED IP TO THIS HOSP Condition: Fair Is patient prescribed a controlled substance at d/c from ED?: No Time of Disposition: 12:40
[2023-10-11] MEDS: SODIUM CHLORIDE 0.9% 1,000 ML IV STA (11:01)
[2023-10-11] MEDS: LABETALOL 5 MG/ML VIAL MDV IVP STA (11:01)
[2023-10-11 11:42] LABS: Basophils % (A) 0 %; Eosinophils # (A) 0.3 k/uL (0-0.7); Eosinophils % (A) 3 %; HCT 38.4 % (39.0-53.0); HGB 13.2 gm/dL (13.0-17.5); Lymphocytes # (A) 1.4 k/uL (1.0-4.8); Lymphocytes % (A) 14 %; MCH 30.5 pg (25.0-35.0); MCHC 34.3 g/dL (31.0-37.0); MCV 88.8 fL (80.0-100.0); Mean Platelet Volume 11.6; Monocytes # (A) 0.6 k/uL (0-1.0); Monocytes % (A) 6 %; Neutrophils % (A) 76 %; Platelet Count 150 k/uL (150-450); RBC 4.33 m/uL (4.30-5.90); RDW 13.2 % (11.5-15.5); WBC 10.6 k/uL (3.8-10.6)
[2023-10-11 11:48] LABS: INR 1.3 (<1.2); Partial Thromboplastin Time 30.4 sec (22.0-30.0); Prothrombin Time 13.5 sec (10.0-12.5)
[2023-10-11 11:52] LABS: ALT 16 U/L (4-49); AST 20 U/L (17-59); African American GFR (CKD) >90 (>60 ml/min/1.73 sqM); Albumin 3.7 g/dL (3.5-5.0); Alkaline Phosphatase 78 U/L (38-126); Anion Gap 5 mmol/L; Blood Urea Nitrogen 12 mg/dL (9-20); Calcium 8.8 mg/dL (8.4-10.2); Carbon Dioxide 26 mmol/L (22-30); Chloride 107 mmol/L (98-107); Glucose 124 mg/dL (74-99); Magnesium 1.6 mg/dL (1.6-2.3); Non-African American GFR(CKD) 87 (>60 ml/min/1.73 sqM); Phosphorus 3.6 mg/dL (2.5-4.5); Sodium 138 mmol/L (137-145); Total Bilirubin 1.3 mg/dL (0.2-1.3); Total Protein 6.3 g/dL (6.3-8.2)
[2023-10-11 12:01] LABS: NT-Pro-B-Type Natriuretic Pept 1790 pg/mL
[2023-10-11] MEDS ORDERED: NALOXONE 0.4 MG/ML 1 ML VIAL IV PRN (12:47)
[2023-10-11] MEDS ORDERED: ONDANSETRON 4 MG/2 ML VIAL IVP PRN (12:47)
[2023-10-11] MEDS: hydrALAZINE HCL 20 MG/ML 1 ML VIAL IVP STA (13:30)
[2023-10-11] MEDS: SODIUM CHLORIDE 0.9% 1,000 ML IV SCH (13:32)
[2023-10-11] MEDS ORDERED: PANTOPRAZOLE 40 MG TABLET PO PRN (13:42)
--- NOTE | 2023-10-11 16:37 | P.HPIM ---
History of Present Illness H&P Date: 10/11/23 Chief Complaint: elevated bp This is a 73 year-old gentleman with known history of atrial fibrillation, coronary artery disease with prior myocardial infarction and prior PCI with 2 stents, hypertension, hyperlipidemia to the emergency department because of elevated blood pressure. He has been checking his blood pressure at home and it has been consistently elevated around 170-200 systolic and 100 to 130 diastolic. patient has been experiencing headaches, burning eyes, chest tightness, shortness of breath and palpitations due to elevated blood pressure. 10 days ago, he was diagnosed with covid, states that he had a really bad cold, currently doing well. No nausea or vomiting. Denies fevers or chills. in the emergency department blood pressure was consistently elevated at around 170/140 and 205/110.. Patient still having headaches at the time of my evaluation. Troponin was negative. He was admitted for further evaluation and management. Review of Systems complete review of system performed, pertinent positives , otherwise negative Past Medical History Past Medical History: Atrial Fibrillation, Asthma, Coronary Artery Disease (CAD), Chest Pain / Angina, Heart Failure, GERD/Reflux, Hypertension, Myocardial Infarction ([place]), Pneumonia, Prostate Disorder, Sleep Apnea/CPAP/BIPAP Additional Past Medical History / Comment(s): sinus problems, damamaged lung/left side ribs from fall in 2009-has caused pleurisy, pneumonia yrs ago, spondylitis, anemia, Last Myocardial Infarction Date:: 2010 History of Any Multi-Drug Resistant Organisms: None Reported Past Surgical History: Adenoidectomy, Cholecystectomy, Heart Catheterization With Stent, Joint Replacement, Orthopedic Surgery, Tonsillectomy Additional Past Surgical History / Comment(s): edwige EYE CATARACT REMOVED. RT KNEE REPLACEMENT, left ankle fusion, two cardiac stents, cardioversion Past Anesthesia/Blood Transfusion Reactions: Previous Problems w/ Anesthesia Additional Past Anesthesia/Blood Transfusion Reaction / Comment(s): had trouble waking up Date of Last Stent Placement:: 2009 AND 2011 Past Psychological History: Anxiety Smoking Status: Never smoker Past Alcohol Use History: Rare Past Drug Use History: None Reported - Past Family History Brother(s) Family Medical History: Cancer Father Family Medical History: Cancer Additional Family Medical History / Comment(s): FROM BONE MARROW CANCER Mother Family Medical History: Cancer Additional Family Medical History / Comment(s): KIDNEY/LIVER Medications and Allergies Home Medications Medication Instructions Recorded Confirmed Type Nitroglycerin Sl Tabs [Nitrostat] 0.4 mg SUBLINGUAL Q5M PRN #25 tab 05/26/14 10/11/23 Rx Doxazosin [Cardura] 4 mg PO BID 05/19/18 10/11/23 History Losartan [Cozaar] 50 mg PO BID 05/19/18 10/11/23 History Rivaroxaban [Xarelto] 20 mg PO HS 05/19/18 10/11/23 History Atorvastatin [Lipitor] 40 mg PO HS 07/10/20 10/11/23 History Pantoprazole Sodium [Protonix] 40 mg PO DAILY PRN 07/10/20 10/11/23 History carvediloL [Coreg] 3.125 mg PO BID 07/10/20 10/11/23 History Cyanocobalamin [Vitamin B-12 1,000 mcg SQ QMONTHLY 10/11/23 10/11/23 History Injection] Allergies Allergy/AdvReac Type Severity Reaction Status Date / Time nifedipine [From Procardia] Allergy Dyspnea Verified 10/11/23 11:46 Penicillins Allergy Unknown Verified 10/11/23 11:46 Childhood Physical Exam Vitals: Vital Signs Temp Pulse Pulse Resp BP Pulse Ox 10/11/23 15:39 93 18 166/110 98 10/11/23 15:00 78 18 158/86 96 10/11/23 14:30 70 16 163/98 97 10/11/23 13:30 84 16 167/118 97 10/11/23 13:08 97.6 F 72 18 163/104 96 10/11/23 13:00 80 16 163/104 97 10/11/23 12:30 73 18 165/97 97 10/11/23 12:00 80 17 169/109 97 10/11/23 11:32 74 18 163/98 97 10/11/23 11:02 76 18 157/102 98 10/11/23 10:55 82 18 178/113 98 10/11/23 10:51 85 10/11/23 10:45 96 10/11/23 10:29 98.0 F 91 18 191/121 100 Intake and Output 10/11/23 10/11/23 10/11/23 06:59 14:59 22:59 Other: Weight 92.079 kg Constitutional: No acute distress, conversant, pleasant Eyes:Anicteric sclerae, moist conjunctiva, no lid-lag, PERRLA, ENMT: Oropharynx clear, no erythema, exudates Neck: Supple, FROM, no masses, or JVD, No carotid bruits, No thyromegaly Lungs: Clear to auscultation, Clear to percussion, Normal respiratory effort, no accessory muscle use Cardiovascular: Heart regular in rate and rhythm, No murmurs, gallops, or rubs, No peripheral edema Abdominal: Soft, Nontender, no guarding, rebound or rigidity, Normoactive bowel sounds, No hepatomegaly, No splenomegaly, No palpable mass Skin: Normal temperature, tone, texture, turgor, no induration, No subcutaneous nodules, No rash, lesions, No ulcers Extremities: No digital cyanosis, No clubbing, Pedal pulses intact and symmetrical, Radial pulses intact and symmetrical, No calf tenderness Psychiatric: Alert and oriented to person, place and time, appropriate affect, intact judgement Neuro: Muscles Strength 5/5 in all 4 extremities, Sensation to light touch grossly present throughout, Cranial nerves II-XII grossly intact, no focal se nsory deficits Results CBC & Chem 7: 10/11/23 10:53 10/11/23 10:53 Labs: Abnormal Lab Results - Last 24 Hours (Table) 10/11/23 10/11/23 10/11/23 Range/Units 10:53 10:53 10:53 Hct 38.4 L (39.0-53.0) % Neutrophils # 8.0 H (1.3-7.7) k/uL PT 13.5 H (10.0-12.5) sec INR 1.3 H (<1.2) APTT 30.4 H (22.0-30.0) sec Glucose 124 H (74-99) mg/dL Assessment and Plan Plan: Hypertensive emergency labetalol 10 mg IV every 2 hours when necessary Increase Coreg dose to 6.25 mg twice daily continued losartan 50 mg daily, doxazosin Add clonidine 0.1 mg by mouth twice a day history of CAD status post PCI with 2 stents history of atrial fibrillation status post ablation Currently stable Consult cardiology Continue xarelto history of hyperlipidemia Resume statin Admit to inpatient expected length of stay more than 2 midnights.
[2023-10-11] MEDS: LABETALOL 5 MG/ML VIAL MDV IVP PRN (16:45)
[2023-10-11] MEDS: carvediloL 6.25 MG TAB PO SCH (16:50)
[2023-10-11] MEDS: LABETALOL SYRINGE 5 MG/ML (4 ML SYR) IVP STA (16:51)
[2023-10-11] MEDS: ACETAMINOPHEN TAB 325 MG TAB PO PRN (16:57)
[2023-10-11] MEDS: ATORVASTATIN 40 MG TAB PO SCH (20:52)
[2023-10-11] MEDS: DOXAZOSIN 4 MG TAB PO SCH (20:52)
[2023-10-11] MEDS: LOSARTAN 50 MG TAB PO SCH (20:52)
[2023-10-11] MEDS: RIVAROXABAN 20 MG TAB PO SCH (20:53)
[2023-10-11] MEDS: cloNIDine HCL 0.1 MG TAB PO SCH (20:53)
[2023-10-11] MEDS ORDERED: carvediloL 3.125 MG TAB PO SCH (21:00)
[2023-10-11 22:24] VITALS: RESP 17
[2023-10-12 07:43] VITALS: BP 137/90; PULSE 79; TEMP 97.7
--- NOTE | 2023-10-12 14:32 | P.DS ---
Providers Date of admission: 10/11/23 12:48 Expected date of discharge: 10/12/23 Attending physician: Madelyn Golden MD Consults: 10/11/23 12:47 Consult Physician Routine Consulting Provider: Lillie Mar Consult Reason/Comments: cp Do you want consulting provider notified?: Yes Primary care physician: Elvin [facility] Course: 73 year-old gentleman with known history of atrial fibrillation, coronary artery disease with prior myocardial infarction and prior PCI with 2 stents, hypertension, hyperlipidemia to the emergency department because of elevated blood pressure. He has been checking his blood pressure at home and it has been consistently elevated around 170-200 systolic and 100 to 130 diastolic. patient has been experiencing headaches, burning eyes, chest tightness, shortness of breath and palpitations due to elevated blood pressure. 10 days ago, he was diagnosed with covid, states that he had a really bad cold, currently doing well. No nausea or vomiting. Denies fevers or chills. in the emergency department blood pressure was consistently elevated at around 170/140 and 205/110.. Patient still having headaches at the time of my evaluati on. Troponin was negative. He was admitted for further evaluation and management. he was admitted due to hypertensive emergency, he was initiated on clonidine 0.1 mg by mouth twice a day as well as labetalol 10 mg IV every 2 hours as needed. His Coreg dose was increased from 3.125 to 6.25 mg by mouth twice a day. Pressure improved significantly. It came back to normal limits today. He is fe eling better, no symptoms of headaches, chest tightness or shortness of breath today.. He will be discharged home in stable condition. patient was seen and examined on the day of discharge 10/11 time for discharge 35 minutes Patient Condition at Discharge: Fair Plan - Discharge Summary Discharge Rx Participant: Yes New Discharge Prescriptions: New cloNIDine HCL [Catapres] 0.1 mg PO BID PRN 30 Days #60 tab PRN Reason: Hypertension Continue Nitroglycerin Sl Tabs [Nitrostat] 0.4 mg SUBLINGUAL Q5M PRN #25 tab PRN Reason: Chest Pain Rivaroxaban [Xarelto] 20 mg PO HS Losartan [Cozaar] 50 mg PO BID Doxazosin [Cardura] 4 mg PO BID Pantoprazole Sodium [Protonix] 40 mg PO DAILY PRN PRN Reason: Gi Upset Cyanocobalamin [Vitamin B-12 Injection] 1,000 mcg SQ QMONTHLY carvediloL [Coreg] 3.125 mg PO BID Atorvastatin [Lipitor] 40 mg PO HS Discharge Medication List Nitroglycerin Sl Tabs [Nitrostat] 0.4 mg SUBLINGUAL Q5M PRN #25 tab 05/26/14 [Rx] Doxazosin [Cardura] 4 mg PO BID 05/19/18 [History] Losartan [Cozaar] 50 mg PO BID 05/19/18 [History] Rivaroxaban [Xarelto] 20 mg PO HS 05/19/18 [History] Atorvastatin [Lipitor] 40 mg PO HS 07/10/20 [History] Pantoprazole Sodium [Protonix] 40 mg PO DAILY PRN 07/10/20 [History] carvediloL [Coreg] 3.125 mg PO BID 07/10/20 [History] Cyanocobalamin [Vitamin B-12 Injection] 1,000 mcg SQ QMONTHLY 10/11/23 [History] cloNIDine HCL [Catapres] 0.1 mg PO BID PRN 30 Days #60 tab 10/12/23 [Rx] Follow up Appointment(s)/Referral(s): Elvin Robbins MD [Primary Care Provider] - 1-2 days
--- NOTE | 2023-10-12 14:43 | P.CRDCN ---
History of Present Illness Consult date: 10/12/23 Consult reason: hypertension History of present illness: History of present illness: Patient is a pleasant 73-year-old male with significant past medical history of A-fib, CAD status post PCI in 2010, hypertension, hyperlipidemia who presented t o the emergency department with concern for elevated blood pressure. He does follow with Dr. Mar in the office. He reports he did have COVID infection 1.5 weeks ago and his blood pressure has been elevated for the past few days. It was typically [id number] at home. He did verify this at a pharmacy and then presented to the emergency department. He has been feeling fatigued. He denies any chest pain or pressure. No shortness of breath, dizziness, or syncope. EKG shows A-fib, rate controlled. Labs reviewed: Troponin negative x 3, BNP 1790, potassium 4.0, creatinine 0.82. He is feeling better today and wants to go home. He does have an outpatient stress test scheduled within the next month at our office. REVIEW OF SYSTEMS: No fever or chills. No cough or expectoration. No di aphoresis. Patient denies headache, dizziness, blurred vision, double vision. Patient denies any stomach discomfort. No nausea, vomiting. No hematochezia. No hematemesis. Denies any black stools or blood in his stools. Denies dysuria or hematuria. No muscle weakness or numbness. No chest pain or pressure. Reports fatigue. PHYSICAL EXAMINATION: This is a 73-year-old male in no apparent distress at the time of my examination. HEENT: Head is atraumatic, normocephalic. Pupils are equal, round. Sclerae anicteric. Conjunctivae are clear. Mucous membranes of the mouth are moist. Neck is supple. There is no jugular venous distention. No carotid bruit is heard. CHEST EXAMINATION: Lungs are clear to auscultation. No chest wall tenderness is noted on palpation or with deep breathing. HEART EXAMINATION: Heart regular rate and rhythm. S1, S2 heard. No murmurs, gallops or rub. ABDOMEN: Soft, nontender. Bowel sounds are heard. EXTREMITIES: 2+ peripheral pulses with no evidence of peripheral edema and no calf tenderness noted. NEUROLOGIC EXAMINATION: Patient is awake, alert and oriented x3. IMPRESSION AND PLAN: CAD status post PCI in 2010 A-fib, persistent Hypertension Hyperlipidemia Recent COVID-19 infection PLAN: ACS ruled out. Blood pressure better controlled on clonidine. Will c ontinue with current regimen for now. Advised to monitor blood pressure and keep a log. Limit salt intake. Okay to discharge home. Follow-up in the office with Dr. Joiner in 1-2 weeks. I am dictating on behalf of Dr. Evens Ramirez's history/physical and assessment/plan. Past Medical History Past Medical History: Atrial Fibrillation, Asthma, Coronary Artery Disease (CAD), Chest Pain / Angina, Heart Failure, GERD/Reflux, Hypertension, Myocardial Infarction (ME), Pneumonia, Prostate Disorder, Sleep Apnea/CPAP/BIPAP Additional Past Medical History / Comment(s): sinus problems, damamaged lung/left side ribs from fall in 2009-has caused pleurisy, pneumonia yrs ago, spondylitis, anemia, Last Myocardial Infarction Date:: 2010 History of Any Multi-Drug Resistant Organisms: None Reported Past Surgical History: Adenoidectomy, Cholecystectomy, Heart Catheterization With Stent, Joint Replacement, Orthopedic Surgery, Tonsillectomy Additional Past Surgical History / Comment(s): edwige EYE CATARACT REMOVED. RT KNEE REPLACEMENT, left ankle fusion, two cardiac stents, cardioversion Past Anesthesia/Blood Transfusion Reactions: Previous Problems w/ Anesthesia Additional Past Anesthesia/Blood Transfusion Reaction / Comment(s): had trouble waking up Date of Last Stent Placement:: 2009 AND 2011 Past Psychological History: Anxiety Smoking Status: Never smoker Past Alcohol Use History: Rare Past Drug Use History: None Reported - Past Family History Brother(s) Family Medical History: Cancer Father Family Medical History: Cancer Additional Family Medical History / Comment(s): FROM BONE MARROW CANCER Mother Family Medical History: Cancer Additional Family Medical History / Comment(s): KIDNEY/LIVER Medications and Allergies Home Medications Medication Instructions Recorded Confirmed Type Nitroglycerin Sl Tabs [Nitrostat] 0.4 mg SUBLINGUAL Q5M PRN #25 tab 05/26/14 10/11/23 Rx Doxazosin [Cardura] 4 mg PO BID 05/19/18 10/11/23 History Losartan [Cozaar] 50 mg PO BID 05/19/18 10/11/23 History Rivaroxaban [Xarelto] 20 mg PO HS 05/19/18 10/11/23 History Atorvastatin [Lipitor] 40 mg PO HS 05/30/21 08/30/24 History Pantoprazole Sodium [Protonix] 40 mg PO DAILY PRN 07/10/20 10/11/23 History carvediloL [Coreg] 3.125 mg PO BID 07/10/20 10/11/23 History Cyanocobalamin [Vitamin B-12 1,000 mcg SQ QMONTHLY 10/11/23 10/11/23 History Injection] cloNIDine HCL [Catapres] 0.1 mg PO BID PRN 30 Days #60 tab 10/12/23 Rx Allergies Allergy/AdvReac Type Severity Reaction Status Date / Time nifedipine [From Procardia] Allergy Dyspnea Verified 10/11/23 11:46 Penicillins Allergy Unknown Verified 10/11/23 11:46 Childhood Physical Exam Vitals: Vital Signs Temp Pulse Pulse Resp BP BP Pulse Ox 10/12/23 07:00 97.7 F 79 17 137/90 94 L 10/12/23 01:44 97.8 F 70 17 125/75 97 10/11/23 22:46 98.4 F 77 17 138/81 98 10/11/23 22:21 70 17 158/94 96 10/11/23 18:19 98.7 F 67 18 151/99 96 10/11/23 17:15 158/89 10/11/23 16:47 84 18 162/93 95 10/11/23 15:39 93 18 166/110 98 10/11/23 15:00 78 18 158/86 96 Intake and Output 10/11/23 10/12/23 10/12/23 22:59 06:59 14:59 Other: # Voids 2 Weight 92.079 kg Results 10/11/23 10:53 10/11/23 10:53 Cardiac Enzymes 10/11/23 10/11/23 Range/Units 15:34 18:07 Troponin I <0.012 <0.012 (0.000-0.034) ng/mL Current Medications Generic Name Dose Route Start Last Admin Trade Name Freq PRN Reason Stop Dose Admin Acetaminophen 650 mg 10/11/23 16:23 10/11/23 16:57 Acetaminophen Tab 325 Mg Tab PO 650 mg Q6HR PRN Administration Fever and/ or Pain Atorvastatin Calcium 40 mg 10/11/23 21:00 10/11/23 20:52 Atorvastatin 40 Mg Tab PO 40 mg HS DIO Administration Carvedilol 6.25 mg 10/11/23 17:30 10/12/23 09:01 Carvedilol 6.25 Mg Tab PO 6.25 mg BID-W/MEALS DIO Administration Clonidine 0.1 mg 10/11/23 21:00 10/12/23 09:01 Clonidine Hcl 0.1 Mg Tab PO 0.1 mg BID DIO Administration Doxazosin Mesylate 4 mg 10/11/23 21:00 10/12/23 09:01 Doxazosin 4 Mg Tab PO 4 mg BID IDO Administration Sodium Chloride 1,000 mls @ 20 mls/hr 10/11/23 13:00 10/11/23 13:32 Saline 0.9% IV 20 mls/hr .Q24H DIO Administration Labetalol HCl 20 mg 10/11/23 16:23 Labetalol 5 Mg/Ml Vial Mdv IVP Q2HR PRN Blood Pressure - High Losartan Potassium 50 mg 10/11/23 21:00 10/12/23 09:01 Losartan 50 Mg Tab PO 50 mg BID DIO Administration Naloxone HCl 0.2 mg 10/11/23 12:47 Naloxone 0.4 Mg/Ml 1 Ml Vial IV Q2M PRN Opioid Reversal Ondansetron HCl 4 mg 10/11/23 12:47 Ondansetron 4 Mg/2 Ml Vial IVP Q8HR PRN Nausea And Vomiting Pantoprazole Sodium 40 mg 10/11/23 13:42 Pantoprazole 40 Mg Tablet PO DAILY PRN GI Upset Rivaroxaban 20 mg 10/11/23 21:00 10/11/23 20:53 Rivaroxaban 20 Mg Tab PO 20 mg HS DIO Administration Protocol Intake and Output 10/11/23 10/12/23 10/12/23 22:59 06:59 14:59 Other: # Voids 2 Weight 92.079 kg 10/11/23 10:53 10/11/23 10:53
== END 2023-10-12 14:47 | disposition home or self-care (01) ==
LOC: EC 10:25 → 6NMEDSUR 12:48
PROVIDERS: ADMIT Internal Medicine; ATTEND Internal Medicine
DX: I16.1 Hypertensive emergency (principal); I48.19 Other persistent atrial fibrillation; I25.10 Atherosclerotic heart disease of native coronary artery without angina pectoris; J45.909 Unspecified asthma, uncomplicated; I11.0 Hypertensive heart disease with heart failure; I50.9 Heart failure, unspecified; K21.9 Gastro-esophageal reflux disease without esophagitis; G47.30 Sleep apnea, unspecified; F41.9 Anxiety disorder, unspecified; E78.5 Hyperlipidemia, unspecified; I25.2 Old myocardial infarction; Z86.16 Personal history of COVID-19; Z95.5 Presence of coronary angioplasty implant and graft; Z79.899 Other long term (current) drug therapy; Z79.01 Long term (current) use of anticoagulants; Z88.0 Allergy status to penicillin
CPT/HCPCS: 36415; 80053; 83605; 83735; 83880; 84100; 84484; 85025; 85610; 85730; 93005; 94660; 96361; 96374; 96375; 96376; 99291

== ENCOUNTER → 2024-01-29 | Outpatient (CLI) | payer MEDICARE ==
--- NOTE | 2024-01-29 15:00 | CT ---
EXAMINATION TYPE: CT abdomen pelvis wo con CT DLP: 1091.6 mGycm, Automated exposure control for dose reduction was used. DATE OF EXAM: 01/29/2024 2:28 PM COMPARISON: CT abdomen pelvis 07/10/2020 CLINICAL INDICATION:Male, 74 years old with history of R10.9 UNSPECIFIED ABDOMINAL PAIN; epigastric p ain after eating TECHNIQUE: Standard CT of the abdomen and pelvis without IV or oral contrast. Lack of IV or oral co ntrast limits evaluation of solid and hollow organ viscera. Coronal and sagittal reformats were perfo rmed. FINDINGS: LOWER CHEST: Linear atelectasis within the left lower lobe. Elevation left hemidiaphragm. Persistent visualization of right gynecomastia. Trace anterior pericardial effusion. Small coronary artery calci fications. ABDOMEN LIVER: Unremarkable noncontrast appearance GALLBLADDER AND BILE DUCTS: The gallbladder is surgically absent. No biliary ductal dilatation. PANCREAS: Unremarkable noncontrast appearance. SPLEEN: Unremarkable noncontrast appearance. ADRENAL GLANDS: Unremarkable noncontrast appearance of the right adrenal gland. Stable left adrenal g land 2.6 cm containing macroscopic fat and soft tissue. KIDNEYS AND URETERS: No evidence of hydronephrosis or renal calculus. Stable right renal cysts with l argest measurement of 5.4 cm. PELVIS BLADDER: There is a 2.4 cm ovoid smooth stone identified layering within the urinary bladder. REPRODUCTIVE: Mildly prominent prostate gland measuring 4.8 cm in transverse dimension. ABDOMEN & PELVIS STOMACH AND BOWEL: Mild gaseous distention of the stomach. Distal colonic diverticulosis without evid ence for acute diverticulitis. The appendix is within normal limits. No evidence of bowel obstruction . PERITONEUM: No evidence of pneumoperitoneum or free fluid. VASCULATURE: Mild atherosclerotic calcifications are present throughout the abdominal aorta and its b ranches. No evidence of aortic aneurysm. Pelvic phleboliths. MUSCULOSKELETAL: No acute osseous abnormalities. Mild multilevel degenerative disc disease. Minimal r etrolisthesis of L3 on L4. LYMPH NODES: No gross evidence for lymphadenopathy. SOFT TISSUE/ABDOMINAL WALL: Small fat filled umbilical hernia. IMPRESSION: 1. No CT evidence for acute abdominal/pelvic process within the limitations of a noncontrast exam. 2. Stable left adrenal myelolipoma. 3. Colonic diverticulosis without evidence for acute diverticulitis. 4. Urinary bladder calculus. [facility], , 01/29/2024 2:58 PM
== END | disposition home or self-care (01) ==
LOC: RADCTMAIN 13:48
PROVIDERS: ATTEND Family Medicine
DX: D17.79 Benign lipomatous neoplasm of other sites (principal); K57.30 Diverticulosis of large intestine without perforation or abscess without bleeding; N21.0 Calculus in bladder; K42.9 Umbilical hernia without obstruction or gangrene
CPT/HCPCS: 74176